=== PATIENT | female | born 1930 | race Caucasian/White ===

== ENCOUNTER → 2017-09-21 | Outpatient (CLI) | payer MEDICARE ==
[~2017-09-21] MED LIST: OXY IR5 MG PO; PREDNISONE1 MG
== END ==
LOC: ZLAB.ENT 14:28
DX: H92.11 Otorrhea, right ear (principal)

== ENCOUNTER 2018-05-10 14:30 | Outpatient (RCR) | payer MEDICARE | END 2018-05-29 14:44 | disposition home or self-care (01) | LOC: WSPT 14:30 | DX: M25.552 Pain in left hip (principal); M25.572 Pain in left ankle and joints of left foot; R26.81 Unsteadiness on feet; W00.0XXD Fall on same level due to ice and snow, subsequent encounter | CPT/HCPCS: G8978-GP; G8979-GP ==

== ENCOUNTER → 2021-03-02 | Outpatient (CLI) | payer MEDICARE | LOC: ZCOL.LAB 17:02 | DX: H70.11 Chronic mastoiditis, right ear (principal) ==